=== PATIENT | male | born 1990 | race Two or more races ===

== ENCOUNTER → 2017-12-12 | Emergency (ER) | payer OTHER ==
[~2017-12-12] VITALS: Ht 170.2 cm; Wt 72.6 kg
[~2017-12-12] MED LIST: ALBUTEROL2.5 MG/3 M IH; CIPRODEX OTIC7.5 ML OT; PATADAY2.5 ML OP; PROVENTIL HFA6.7 GM IH; SINGULAIR10 MG PO; SWIM EAR DROPS30 ML OTIC; SYMBICORT 16010.2 GM IH; ZITHROMAX200 MG PO
== END | disposition home or self-care (01) ==
LOC: ER 14:51
DX: B34.9 Viral infection, unspecified (principal); M54.5 Low back pain

== ENCOUNTER 2017-12-21 08:12 | Outpatient (CLI) | payer OTHER | END 2017-12-21 08:15 | disposition home or self-care (01) | LOC: LAB 08:12 | DX: H57.10 Ocular pain, unspecified eye (principal) ==

== ENCOUNTER 2017-12-21 08:12 | Outpatient (CLI) | payer OTHER | END 2017-12-21 08:31 | disposition home or self-care (01) | LOC: TOM 08:12 | DX: H57.10 Ocular pain, unspecified eye (principal) ==

== ENCOUNTER 2018-07-23 10:26 | Emergency (ER) | payer OTHER ==
[~2018-07-23] VITALS: Ht 172.7 cm; Wt 72.6 kg
[2018-07-23] MEDS ORDERED: TUSSIONEX PENN115 ML PO (12:24)
[2018-07-23] MEDS ORDERED: MEDROLPACK PO (12:24)
[2018-07-23] MEDS ORDERED: XOPENEX HFA15 GM IH (12:25)
== END 2018-07-23 14:54 | disposition home or self-care (01) ==
LOC: ER 10:26
DX: J45.998 Other asthma (principal)

== ENCOUNTER → 2018-08-02 | Outpatient (CLI) | payer OTHER ==
[~2018-08-02] MED LIST changes: +MEDROLPACK PO; +TUSSIONEX PENN115 ML PO; +XOPENEX HFA15 GM IH
== END | disposition home or self-care (01) ==
LOC: RAD 11:58
DX: J45.51 Severe persistent asthma with (acute) exacerbation (principal)

== ENCOUNTER → 2019-08-17 | Outpatient (CLI) | payer OTHER | END | disposition home or self-care (01) | LOC: TOM 08:31 | DX: H05.122 Orbital myositis, left orbit (principal); R41.3 Other amnesia ==

== ENCOUNTER 2019-09-22 11:56 | Outpatient (CLI) | payer OTHER | END 2019-09-22 15:03 | disposition home or self-care (01) | LOC: LAB 11:56 | DX: J11.1 Influenza due to unidentified influenza virus with other respiratory manifestations (principal); J15.7 Pneumonia due to Mycoplasma pneumoniae ==